=== PATIENT | female | born 1960 | race African-American/Black ===

== ENCOUNTER 2022-02-06 00:24 | Emergency (ER) | payer OTHER ==
[2022-02-06 00:50] VITALS: TEMP 98.1; BMI 36.4
[2022-02-06] MEDS ORDERED: morphine SULFATE 4 MG/ML VIAL ONE (04:19)
[2022-02-06] MEDS ORDERED: morphine CARPU-JECT 2 MG/1 ML DISP.SYRIN SQ ONE (05:38)
[2022-02-06 05:49] VITALS: BP 125/76; PULSE 81
== END 2022-02-06 06:53 | disposition home or self-care (01) ==
LOC: JER 00:24
DX: M25.562 Pain in left knee (principal); V48.4XXA Person boarding or alighting a car injured in noncollision transport accident, initial encounter
CPT/HCPCS: 72170-TC-FY; 73502-TC-LT-FY; 73562-TC-LT-FY; 73590-TC-LT-FY; 73700-TC-RT; 99284-25